=== PATIENT | female | born 1965 | race Caucasian/White ===

== ENCOUNTER → 2021-12-14 | Day surgery (SDC) | payer OTHER | END | disposition home or self-care (01) | LOC: JRADIR 09:42 | PROVIDERS: ATTEND Family Medicine | PROC: 0G9K3ZX Drainage of Thyroid Gland, Percutaneous Approach, Diagnostic (ICD-10-PCS; principal; 2021-12-14) | DX: E04.1 Nontoxic single thyroid nodule (principal) | CPT/HCPCS: 10005; 76942; 88173; 88305-TC ==

== ENCOUNTER → 2023-08-02 | Day surgery (SDC) | payer OTHER | END | disposition home or self-care (01) | LOC: JRADIR 09:42 | PROVIDERS: ATTEND Internal Medicine Endocrinology, Diabetes & Metabolism | PROC: 0G9G3ZX Drainage of Left Thyroid Gland Lobe, Percutaneous Approach, Diagnostic (ICD-10-PCS; principal; 2023-08-02) | DX: E04.1 Nontoxic single thyroid nodule (principal) | CPT/HCPCS: 10005; 76942 ==

== ENCOUNTER 2024-07-20 13:33 | Emergency (ER) | payer OTHER ==
[2024-07-20 14:08] VITALS: BMI 23.0
[2024-07-20] MEDS ORDERED: ONDANSETRON *ODT* 4 MG TABLET ONE (15:22)
[2024-07-20] MEDS: ONDANSETRON *ODT* 4 MG TABLET SL ONE (15:23)
[2024-07-20 17:04] VITALS: BP 101/67; PULSE 104; RESP 18; TEMP 98.6
== END 2024-07-20 17:36 | disposition home or self-care (01) ==
LOC: JER 13:33
DX: A08.4 Viral intestinal infection, unspecified (principal); R11.2 Nausea with vomiting, unspecified; R19.7 Diarrhea, unspecified; Z20.822 Contact with and (suspected) exposure to COVID-19
CPT/HCPCS: 0241U-QW; 93005; 93010; 99284-25; Q0162